=== PATIENT | male | born 1995 | race Caucasian/White ===

== ENCOUNTER 2016-10-04 04:23 | Outpatient (CLI) | payer MEDICAID | END 2016-10-04 04:24 | disposition critical access hospital (66) | LOC: EMS 04:23 | PROVIDERS: ATTEND Surgery | DX: R46.89 Other symptoms and signs involving appearance and behavior (principal); F41.9 Anxiety disorder, unspecified | CPT/HCPCS: A0425; A0429 ==

== ENCOUNTER 2016-10-04 04:42 | Emergency (ER) | payer MEDICAID ==
--- NOTE | 2016-10-04 04:58 | ED Physician Documentation ---
PD HPI MHE - Stated complaint Stated Complaint: PARANOID - Chief complaint Chief Complaint: Neuro - History obtained from History obtained from: Patient - History of Present Illness Primary symptom: Other (paranoia) Timing - onset: How many days ago (2) Pain level max: 0 Pain level now: 0 Contributing factors: Other (states took medication from a friend 2 days ago, doesn't know what it is) Similar symptoms before: Has not had sx before Recently seen: Not recently seen - Additional information Additional information: states hearing voices and people walking up and down the stairs. Review of Systems Ten Systems: 10 systems reviewed and negative Constitutional: denies: Fever, Chills Throat: denies: Sore throat Cardiac: denies: Chest pain / pressure GI: denies: Abdominal Pain, Nausea, Vomiting, Diarrhea Skin: denies: Rash Musculoskeletal: denies: Neck pain, Back pain Neurologic: denies: Focal weakness, Numbness, Headache Psychiatric: reports: Hallucinations, Insomnia, Other (paranoia). denies: Depressed, Suicidal, Homicidal PD PAST MEDICAL HISTORY - Past Medical History Past Medical History: No - Past Surgical History Past Surgical History: No - Present Medications Home Medications: Ambulatory Orders Medication Instructions Recorded Confirmed No Known Home Medications [No 10/04/16 10/04/16 Known Home Medications] - Allergies Allergies/Adverse Reactions: Allergies Allergy/AdvReac Type Severity Reaction Status Date / Time No Known Drug Allergies Allergy Verified 10/04/16 04:50 - Living Situation Living Situation: reports: With family Living Arrangement: reports: At home - Social History Does the pt smoke?: Yes Smoking Status: Current every day smoker Does the pt drink ETOH?: Yes Does the pt have substance abuse?: No - Family History Family history: reports: Non contributory PD ED PE NORMAL - Vitals Vital signs reviewed: Yes - General General: Alert and oriented X 3, No acute distress, Well developed/nourished - HEENT HEENT: PERRL, Moist mucous membranes - Neck Neck: Supple, no meningeal sign - Cardiac Cardiac: RRR, Strong equal pulses - Respiratory Respiratory: No respiratory distress, Clear bilaterally - Abdomen Abdomen: Soft, Non tender, Non distended - Back Back: No spinal TTP - Derm Derm: Warm and dry, No rash - Extremities Extremities: No edema, No calf tenderness / cord - Neuro Neuro: Alert and oriented X 3 - Psych Psych: Other (darting eyes, anxious appearing.) Results - Vitals Vitals: Vital Signs - 24 hr 10/04/16 10/04/16 04:45 04:59 Temperature 36.8 C Heart Rate 97 93 Respiratory 18 18 Rate Blood Pressure 133/84 H 130/80 O2 Saturation 100 100 Oxygen O2 Source Room air - Labs Labs: Laboratory Tests 10/04/16 10/04/16 10/04/16 05:11 05:11 05:16 WBC 9.8 RBC 5.16 Hgb 15.0 Hct 44.7 MCV 86.5 MCH 29.1 MCHC 33.6 RDW 13.3 Plt Count 231 MPV 8.6 Neut # 7.1 H Lymph # 1.7 Tensas # 0.9 Eos # 0.0 Baso # 0.1 Absolute Nucleated RBC 0.00 Nucleated RBCs 0.0 Sodium 137 Potassium 3.9 Chloride 100 L Carbon Dioxide 26 Anion Gap 11.0 BUN 15 Creatinine 0.8 Estimated GFR (MDRD) 120 Glucose 100 Calcium 9.4 Total Bilirubin 0.7 AST 37 ALT 26 Alkaline Phosphatase 76 Total Protein 8.2 Albumin 5.0 Globulin 3.2 Albumin/Globulin Ratio 1.6 Lipase 19 L Urine Color ORANGE Urine Clarity CLEAR Urine pH 6.0 Ur Specific [place] 1.025 Urine Protein 30 H Urine Glucose (UA) NEGATIVE Urine Ketones 15 H Urine Occult Blood NEGATIVE Urine Nitrite NEGATIVE Urine Bilirubin NEGATIVE Urine Urobilinogen 0.2 (NORMAL) Ur Leukocyte Esterase NEGATIVE Urine RBC 0-5 Urine WBC 0-3 Ur Squamous Epith Cells NONE SEEN Urine Crystals 6-10 Calcium Oxalate Urine Bacteria None Seen Ur Microscopic Review INDICATED Urine Culture Comments NOT INDICATED Salicylates < 6.0 Urine Opiates Screen NEGATIVE Ur Oxycodone Screen NEGATIVE Urine Methadone Screen NEGATIVE Ur Propoxyphene Screen NEGATIVE Acetaminophen < 10 L Ur Barbiturates Screen NEGATIVE Ur Tricyclics Screen NEGATIVE Ur Phencyclidine Scrn NEGATIVE Ur Amphetamine Screen POSITIVE H U Methamphetamines Scrn POSITIVE H U Benzodiazepines Scrn NEGATIVE Urine Cocaine Screen NEGATIVE U Cannabinoids Screen NEGATIVE Ethyl Alcohol < 5.0 PD MEDICAL DECISION MAKING - ED course Complexity details: reviewed results, re-evaluated patient, considered differential, d/w patient, d/w family ED course: Patient is a 21-year-old male who presents to the emergency department with paranoia and auditory hallucinations. His drug screen is positive for methamphetamine. He denies using methamphetamine, but does admit to taking drugs from his friends that he did not know what they were. Likely that this was methamphetamine. Will expect that this will improve over the next few hours to days. His mother is comfortable taking him home at this time. He has no prior psychiatric history. Patient is calm and cooperative here. No current hallucinations in the emergency department or paranoia. We did discuss that there is a small chance that this could be something such as a schizophrenic break, but as the symptoms coincided with his methamphetamine use , feel that that is more likely at this time. Patient and family counseled regarding signs and symptoms for which I believe and urgent re-evaluation would be necessary. Patient with good understanding of and agreement to plan and is comfortable going home at this time This document was made in part using voice recognition software. While efforts are made to proofread this document, sound alike and grammatical errors may occur. Departure - Departure Disposition: 01 Home, Self Care Clinical Impression: Paranoia, Methamphetamine abuse Condition: Good Instructions: ED Drug Abuse General Follow-Up: your,doctor in 1 week [Other] Comments: Return if you worsen. This should improve as the methamphetamine leaves your system.
[2016-10-04 05:30] LABS: BASOPHILS # (AUTO) 0.1 10^3/uL (0.0-0.1); BASOPHILS % (AUTO) 0.6 %; EOSINOPHILS % (AUTO) 0.3 %; HCT - HEMATOCRIT 44.7 % (42.0-52.0); LYMPHOCYTES # (AUTO) 1.7 10^3/uL (1.5-3.5); LYMPHOCYTES % (AUTO) 17.3 %; MEAN CORPUSCULAR HEMOGLOBIN 29.1 pg (27.0-31.0); MEAN CORPUSCULAR HGB CONC 33.6 g/dL (32.0-36.0); MEAN CORPUSCULAR VOLUME 86.5 fL (80.0-94.0); MEAN PLATELET VOLUME 8.6 fL (7.4-11.4); MONOCYTES # (AUTO) 0.9 10^3/uL (0.0-1.0); MONOCYTES % (AUTO) 9.5 %; NEUTROPHILS # (AUTO) 7.1 10^3/uL (1.5-6.6); NEUTROPHILS % (AUTO) 72.3 %; RED BLOOD COUNT 5.16 10^6/uL (4.70-6.10); RED CELL DISTRIBUTION WIDTH 13.3 % (12.0-15.0); UNCORRECTED WHITE BLOOD COUNT 9.8 x10^3/uL; WHITE BLOOD COUNT 9.8 x10^3/uL (4.8-10.8)
[2016-10-04 05:43] LABS: BILIRUBIN,URINE NEGATIVE (NEGATIVE); UA w/ MICROSCOPIC CHARGE YES
[2016-10-04 05:49] LABS: UR CULTURE IF IND NOT INDICATED; WBC,URINE 0-3 /HPF (0-3)
[2016-10-04 05:49] LABS: ALBUMIN/GLOBULIN RATIO 1.6 (1.0-2.2); BILIRUBIN,TOTAL 0.7 mg/dL (0.2-1.0); BUN - BLOOD UREA NITROGEN 15 mg/dL (6-20); CALCIUM 9.4 mg/dL (8.5-10.3); CARBON DIOXIDE - CO2 26 mmol/L (21-32); CHLORIDE 100 mmol/L (101-111); CREATININE 0.8 mg/dL (0.6-1.2); GFR - MDRD 120 (>89); GLUCOSE 100 mg/dL (70-100); LIPASE 19 U/L (22-51); POTASSIUM 3.9 mmol/L (3.5-5.0); SALICYLATE < 6.0 mg/dL; SODIUM 137 mmol/L (135-145); TOTAL PROTEIN 8.2 g/dL (6.7-8.2)
[2016-10-04 05:50] LABS: ACETAMINOPHEN < 10 ug/mL (10-30)
[2016-10-04 06:16] VITALS: BP 121/73
== END 2016-10-04 06:13 | disposition home or self-care (01) ==
LOC: ED 04:42
DX: F22 Delusional disorders (principal); F15.10 Other stimulant abuse, uncomplicated; F17.200 Nicotine dependence, unspecified, uncomplicated
CPT/HCPCS: 36415; 80053; 80306; 80307; 80320; 80329; 81001; 81003; 83690; 84443; 85025; 87086; 99283; 99284

== ENCOUNTER 2019-07-10 15:53 | Emergency (ER) | payer MEDICAID ==
--- NOTE | 2019-07-10 16:08 | ED Physician Documentation ---
PD HPI URI - Stated complaint Stated Complaint: CHILLS,COUGH,FEVER - Chief complaint Chief Complaint: General - History obtained from History obtained from: Patient - History of Present Illness Timing - onset: How many days ago (2) Timing duration: Days (2) Timing details: Abrupt onset, Still present Associated symptoms: Fever, Chills, Nasal congestion, NVD (loose stools couple of times; vomiting once, still nausea though.). No: Dry cough Contributing factors: No: Sick contact, Travel, Immunocompromised, COPD / asthma Similar symptoms before: Has not had sx before Recently seen: Not recently seen Review of Systems Constitutional: reports: Chills, Myalgias, Fatigue. denies: Fever Nose: reports: Rhinorrhea / runny nose, Congestion Throat: reports: Sore throat Cardiac: denies: Chest pain / pressure, Palpitations Respiratory: reports: Cough. denies: Dyspnea, Wheezing GI: reports: Nausea, Vomiting (once), Diarrhea (couple of times) Skin: denies: Rash Neurologic: reports: Generalized weakness. denies: Near syncope, Altered mental status, Headache PD PAST MEDICAL HISTORY - Past Medical History Cardiovascular: None Respiratory: Asthma Endocrine/Autoimmune: None GI: None : None HEENT: None Psych: ADD/ADHD Musculoskeletal: None Derm: None - Past Surgical History Past Surgical History: No - Present Medications Home Medications: Ambulatory Orders Medication Instructions Recorded Confirmed Diphenoxylate/Atropine [Lomotil] 1 each PO QID PRN #12 tablet 07/10/19 Ondansetron Odt [Zofran] 4 mg TL Q6H PRN #10 tablet 07/10/19 dexAMETHasone [Decadron] 4 mg PO DAILY #5 tablet 07/10/19 - Allergies Allergies/Adverse Reactions: Allergies Allergy/AdvReac Type Severity Reaction Status Date / Time No Known Drug Allergies Allergy Verified 07/10/19 16:00 - Social History Does the pt smoke?: Yes Smoking Status: Current every day smoker Does the pt drink ETOH?: Yes Does the pt have substance abuse?: No - Immunizations Immunizations are current?: Yes - POLST Patient has POLST: No PD ED PE NORMAL - Vitals Vital signs reviewed: Yes - General General: Alert and oriented X 3, No acute distress, Well developed/nourished - HEENT HEENT: Moist mucous membranes, Pharynx benign - Neck Neck: Supple, no meningeal sign, No adenopathy - Cardiac Cardiac: RRR, No murmur - Respiratory Respiratory: Clear bilaterally - Abdomen Abdomen: Soft, Non tender Results - Vitals Vitals: Vital Signs - 24 hr 07/10/19 07/10/19 07/10/19 15:57 16:26 17:22 Temperature 36.7 C 37.1 C 37.2 C Heart Rate 84 87 84 Respiratory 16 18 18 Rate Blood Pressure 116/75 123/79 98/78 O2 Saturation 98 100 97 Oxygen O2 Source Room air - Labs Labs: Laboratory Tests 07/10/19 16:22 Influenza A (Rapid) Negative Influenza B (Rapid) Negative PD MEDICAL DECISION MAKING - ED course Complexity details: reviewed results, considered differential (flu like symptoms. Has negative flu test here. No exposures to suggest risk for COVID- 19.), d/w patient Departure - Departure Disposition: 01 Home, Self Care Clinical Impression: Flu-like symptoms Condition: Stable Record reviewed to determine appropriate education?: Yes Instructions: ED Upper Resp Infec No Abx Tx Prescriptions: dexAMETHasone [Decadron] 4 mg PO DAILY #5 tablet Diphenoxylate/Atropine [Lomotil] 1 each PO QID PRN #12 tablet PRN Reason: Diarrhea Ondansetron Odt [Zofran] 4 mg TL Q6H PRN #10 tablet PRN Reason: Nausea / Vomiting Comments: Your symptoms sound flulike or some viral illness. Your flu test is negative but is not completely accurate so still could be influenza possibly. For most viral illnesses you likely be sick about 4 to 5 days. Influenza can be 7 or 8 days on average. We will try to improve your symptoms with ondansetron for nausea and Lomotil for diarrhea. Stay well-hydrated. Tylenol or ibuprofen for pains or fevers. Decadron steroid anti-inflammatory for symptoms generally. Recheck if not improved over the next few days return if worsening symptoms in particular cough wheeze or trouble breathing. Off work today and tomorrow and then resume work if feeling better at that point. Forms: Activity restrictions Discharge Date/Time: 07/10/19 17:22
[2019-07-10] MEDS ORDERED: ONDANSETRON ODT 4 MG TABLET TL STA (16:24)
[2019-07-10] MEDS ORDERED: CHERRY SYRUP 10 ML UDC PO ONE (16:24)
[2019-07-10] MEDS ORDERED: DIPHENOX/ATROPINE 2.5/0.025 MG TABLET PO STA (16:24)
[2019-07-10] MEDS ORDERED: DEXAMETHASONE 10 MG/ML VIAL PO STA (16:24)
[2019-07-10 17:23] VITALS: BP 98/78
== END 2019-07-10 17:22 | disposition home or self-care (01) ==
LOC: ED 15:53
DX: R11.2 Nausea with vomiting, unspecified (principal); R19.7 Diarrhea, unspecified; R05 Cough; R09.81 Nasal congestion; R09.89 Other specified symptoms and signs involving the circulatory and respiratory systems; R53.1 Weakness; F17.200 Nicotine dependence, unspecified, uncomplicated
CPT/HCPCS: 87275; 87276; 99283; A9270; Q0162